=== PATIENT | male | born 1950 | race Caucasian/White ===

== ENCOUNTER 2016-07-20 17:39 | Emergency (ER) | payer OTHER ==
--- NOTE | 2016-07-20 20:06 | ED CLINICAL REPORT ---
Clinical Report - Physicians/Mid Levels [facility] [address] [place] [address] 07/20/2016 17:39 Patient: SIM GUTHRIE Time Seen: 18:00. Arrived- By private vehicle. Historian- patient. HISTORY OF PRESENT ILLNESS Chief Complaint: UPPER EXTREMITY PAIN and SWELLING. This started about 4 days ago and is still present. It was gradual in onset and has been constant. Severity is described as being .it has become recently worse. The quality is noted to be aching and "pain". Symptoms located in the area of the left elbow, left forearm, left wrist and left hand. The patient has had redness and swelling. Patient denies an injury. REVIEW OF SYSTEMS No chills, fever, sweats, calf pain or chest pain. No cough, difficulty breathing, pedal edema, palpitations or abdominal pain. No constipation, diarrhea, nausea or vomiting. He has had urgency, frequency and moderate pain during urination (he says that he gets frequent recurrent urinary tract infections.). It has been similar to previous symptoms. All systems otherwise negative, except as recorded above. PAST HISTORY PCP - LADY SUGGS Problems: Hyperlipidemia. Back Pain. Cardiomyopathy. Hypertension. Pedal Edema. Immunizations. Neuropathy. Atrial Fibrillation. Diabetes Mellitus. Additional Surgeries: Appendectomy. Medications: Zyrtec 10mg, daily. Gabapentin Oral 300 mg, 3x a day. OxyCODONE HCl Oral 5 mg, as needed. Torsemide Oral, daily. Vitamin D Oral. Atenolol Oral 25 mg, daily. MetFORMIN HCl Oral 500 mg, daily. Potassium Chloride Oral 20 meq, daily. Spironolactone Oral 50 mg, 2x a day. Allergies: Unknown. SOCIAL HISTORY Former smoker, end date 2006. History of occasional drug use: marijuana. No alcohol use. FAMILY HISTORY No significant family medical history. ADDITIONAL NOTES The nursing notes have been reviewed. PHYSICAL EXAM Vital Signs: 07/20/2016 17:46 BP: 123/82. HR: 78. RR: 16. O2 saturation: 95%. Temp: 99.2 F. Pain level now: 4/10. Have been reviewed. Appearance: Alert. Eyes: Pupils equal, round and reactive to light. ENT: Pharynx normal. Neck: Normal inspection. Neck supple. CVS: Normal heart rate and rhythm. Heart sounds normal. Respiratory: No respiratory distress. Breath sounds normal. Abdomen: Soft and nontender. No organomegaly. Severely obese. Back: Normal inspection. Skin: Skin warm and dry. Extremities: Swelling, warmth, tenderness and erythema present in the left hand, left wrist, left forearm and left elbow. No fluctuance. Left elbow. (moderately swollen olecranon bursa). LABS, X-RAYS, AND EKG Lt Elbow X-ray: (IMPRESSION: 1. Moderate sized joint effusion. 2. Soft tissue thickening in the olecranon bursa region suggestive of a bursitis. 3. No soft tissue gas, foreign body, or evidence of osteomyelitis. 4. Findings of probable remote, healed common extensor tendon injury and possibly partial tendon tear laterally). The X-rays were interpreted contemporaneously by me and discussed with the radiologist. Lt Wrist X-ray: (IMPRESSION: 1. Intact left wrist. 2. No evidence of soft tissue gas. 3. Extensive calcific arteriosclerosis). The X-rays were interpreted contemporaneously by me and discussed with the radiologist. Laboratory Tests: UA-Culture if indicated: (REFUGIO: 07/20/2016 19:50) ( MsgRcvd 07/20/2016 20:07) Final results Test Result Flag Units (Reference) URINE COLOR YELLOW URINE APPEARANCE CLOUDY URINE GLUCOSE NEGATIVE (NEGATIVE) URINE BILIRUBIN NEGATIVE (NEGATIVE) URINE KETONE NEGATIVE (NEGATIVE) URINE SPECIFIC GRAVITY 1.010 (1.010-1.030) URINE PH 6.0 (5.0-8.0) URINE PROTEIN 1+ (NEGATIVE) URINE UROBILINOGEN 4.0 EU/dL (0.2-1.0) The urobilinogen reagent area may react with interferingsubstances known to react with Graham's reagent such asp-aminosalicylic acid and sulfonamides. Atypical colorreactions may be obtained in the presence of highconcentrations of p-aminobenzoic acid. The absence ofurobilinogen cannot be determined with this test. URINE NITRITE POSITIVE (NEGATIVE) URINE BLOOD 1+ (NEGATIVE) URINE LEUK ESTERASE POSITIVE (NEGATIVE) URINE RBC 1-3 rbc/hpf (0-1) URINE WBC >100 wbc/hpf (0-1) URINE EPITHELIAL CELLS 1-3 EPI/hpf (0-5) URINE BACTERIA FEW (1+) (NONE SEEN) URINE COMMENT CULTURE INDICATED 0-1 TRANSITIONAL EPITHELIAL CELLSURINE CULTURES ARE SET-UP BASED ON THE FOLLOWING CRITERIA:POSITIVE NITRITEPOSITIVE LEUKOCYTE ESTERASEGREATER THAN 10 WHITE BLOOD CELLSMODERATE (2+) OR GREATER BACTERIA CBC w Diff: (REFUGIO: 07/20/2016 18:30) ( [facility] 18:44) Final results Test Result Flag Units (Reference) WHITE BLOOD COUNT 10.8 K/uL (4.5-11.5) RED BLOOD COUNT 4.71 M/uL (4.50-5.90) HEMOGLOBIN 14.8 gm/dL (13.5-17.5) HEMATOCRIT 43.7 % (41.0-53.0) MEAN CELL VOLUME 93 fL (80-100) MEAN CORPUSCULAR HGB 32 pg (26-34) MEAN CORPUSCULAR HGB CONC 34 g/dL (31-37) RED CELL DISTRIBUTION WIDTH 16.3 H % (11.6-14.8) PLATELET COUNT 113 L K/uL (150-400) NEUTROPHIL % 80.9 H % (50-75) LYMPH % 9.4 L % (25-40) MONO % 8.3 % (3-14) EOSINOPHIL % 0.9 % (0-4) BASOPHIL % 0.5 % (0-2) PT with INR: (REFUGIO: 07/20/2016 18:30) ( [facility] 07/20/2016 18:53) Final results Test Result Flag Units (Reference) INR 1.1 (0.8-1.2) Low Intensity Therapy: INR 1.5-2.0 PT range 18.5-23.1Mod.Intensity Therapy: INR 2.0-3.0 PT range 23.1-31.5High Intensity Therapy: INR 2.5-3.5 PT range 27.4-35.5High Intensity Therapy 2: INR 3.0-4.0 PT range 31.5-39.3 APTT 38 H SECONDS (24-34) D-DIMER QUANTITATIVE 0.38 ug/mLFEU (0.27-0.52) The primary value of this quantitative assay relates toits negative predictive value (i.e. exclusion) of pulmonaryembolism/deep vein thrombosis/DIC.Elevated levels of d-dimer may also occur with:, age, cancer, inflammation, liver disease,post-op, infection, hematoma, coronary disease, peripheralarteriopathy, bleeding disorders and thrombolytic treatment.Results should be correlated with other clinical andradiological data.Testing Methodology: Latex Immunoassay Lactate, Serum: (REFUGIO: 07/20/2016 18:50) ( [facility] 07/20/2016 19:19) Final results Test Result Flag Units (Reference) LACTIC ACID 0.6 mmol/L (0.4-2.0) CMP: (REFUGIO: 07/20/2016 18:30) ( [facility]) Final results Test Result Flag Units (Reference) GLUCOSE 133 H mg/dL (70-110) BUN 68 H mg/dL (7-18) CREATININE 1.7 H mg/dL (0.6-1.3) Estimated GFR 42.94 mL/min Estimated GFR- 52.04 mL/min Note: Persistent reduction over 3 months in eGFR<60 mL/min/1.73 m2 defines CKD. Patients with eGFR values>=60 mL/min/1.73 m2 may also have CKD if evidence ofpersistent proteinuria. Additional information may be foundat [email or web address].org. SODIUM 136 mmol/L (136-145) POTASSIUM 4.6 mmol/L (3.5-5.1) CHLORIDE 98 mmol/L (98-107) CARBON DIOXIDE 26 mmol/L (21-32) CALCIUM 9.0 mg/dL (8.5-10.1) TOTAL PROTEIN 8.1 g/dL (6.4-8.2) ALBUMIN 3.9 g/dL (3.3-5.0) BILIRUBIN, TOTAL 0.9 mg/dL (0.0-1.0) ALKALINE PHOSPHATASE 74 U/L (46-116) AST (SGOT) 13 L U/L (15-37) ALT (SGPT) 20 U/L (12-78) . PROGRESS AND PROCEDURES Course of Care: Orthopedic services are not available at [facility] this evening. Discussed case with hospitalist, (Kenyatta at [facility]). Reviewed test results and need for additional work-up. Agreed upon treatment plan and decision to admit. Health care provider will see patient in hospital. Consult obtained from orthopedics. Dr. Schaeffer at [facility]. Case discussed. Phone consult only. Will see patient in the hospital. Patient/family counseled. Old medical records reviewed. Disposition: Transferred. CLINICAL IMPRESSION Septic joint- left elbow. Cellulitis of the left elbow, left forearm, left wrist and left hand. (Electronically signed by Andrew Oropeza MD 07/21/2016 22:13)
--- NOTE | 2016-07-20 20:06 | ED NURSING NOTES ---
Clinical Report - Nurses [facility] [place] [address] 07/20/2016 17:39 Patient: SIM GUTHRIE TRIAGE Triage time 17:45 Jul 20 2016. Acuity: LEVEL 3. Chief Complaint: LEFT UPPER EXTREMITY PAIN, SWELLING and REDNESS. Alert. JORDAN COMA SCORE: [place] Coma Scale: 15- eyes open spontaneously (4); best verbal response- oriented x 4 (5); best motor response- obeys commands (6). --18:00 Lakhwinder Chairez R.N. 17:46 07/20/16. BP: 123/82. HR: 78. RR: 16. O2 saturation: 95%. Temp: 99.2 F. Pain level now: 4/10. Additional comments: but increases to 10/10 if he tries to move that extrem. --18:00 Lakhwinder Chairez R.N. 17:46. --18:26 Lakhwinder Chairez R.N. Weight: 145.1 kg stated. Height/Length: 73 inches Per Patient. BMI: 42.2. --17:53 Lakhwinder Chairez R.N. Medications Atenolol Oral 25 mg, daily. MetFORMIN HCl Oral 500 mg, daily. Potassium Chloride Oral 20 meq, daily. Spironolactone Oral 50 mg, 2x a day. --17:55 Lakhwinder Chairez R.N. Torsemide Oral, daily. Vitamin D Oral. --17:56 Lakhwinder Chairez R.N. OxyCODONE HCl Oral 5 mg, as needed. --17:57 Lakhwinder Chairez R.N. Gabapentin Oral 300 mg, 3x a day. --18:15 Lakhwinder Chairez R.N. Zyrtec 10mg, daily. --18:16 Lakhwinder Chairez R.N. The following entry was struck and corrected by Lakhwinder Chairez R.N., 17:58 (07/20/16) Reason for correction - other(correction). <<STRICKEN ENTRY-- MetFORMIN HCl Oral 500 mg, 2x a day. --17:55 Lakhwinder Chairez R.N. --END STRIKE>>. Allergies Unknown. --17:55 Lakhwinder Chairez R.N. Medication/allergy information source: the patient. --18:00 Lakhwinder Chairez R.N. History Arrived by private vehicle. Historian: patient. Accompanied by spouse. Primary physician (David). ( (L) Forearm/Elbow pain and swelling. Pt states that he might have injured that arm 7 months ago when he was pulling a gas motor starter cord.). An injury may have occurred. This occurred (maybe 7 moths ago). Occurred at home. It is described as radiating to the left upper extremity and elbow. He has had redness on left forearm. 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 PAST MEDICAL HX: Type II diabetes mellitus treated with oral medication. Hypertension. Tetanus status: unknown. Immunizations: status is unknown. SOCIAL HX: Former smoker, end date 2006. History of occasional drug use: marijuana. No alcohol use. No infectious disease exposure. ABUSE ASSESSMENT: No report of abuse. FALL RISK ASSESSMENT: Fall risk assessment completed. No fall risk identified. NUTRITIONAL RISK ASSESSMENT: The nutritional risk assessment revealed no deficiencies. FUNCTIONAL ASSESSMENT: Functional assessment: no impairments noted. LEARNING NEEDS ASSESSMENT: The learning needs assessment revealed no barriers. SKIN INTEGRITY ASSESSMENT: Skin integrity risk assessment completed. No skin integrity risk identified. --18:00 Lakhwinder Chairez R.N. ( Pt states that before he injured his LFA pulling the motor cord, he had fallen and injured both knees and the (R) knee needed drainage after it swelled, "the size of a football."). --18:04 Lakhwinder Chairez R.N. This occurred (LFA pain started 4 days ago.). --18:26 Lakhwinder Chairez R.N. PROBLEMS: Pedal Edema. Immunizations. Neuropathy. Atrial Fibrillation. --17:59 Lakhwinder Chairez R.N. Hyperlipidemia. Cardiomyopathy. Back Pain. --18:12 Lakhwinder Chairez R.N. ADDITIONAL SURGERIES: Appendectomy. --17:59 Lakhwinder Chairez R.N. Interventions ID band on patient. To treatment room. --18:00 Lakhwinder Chairez R.N. PHYSICAL ASSESSMENT Ambulatory to room. GENERAL / NEURO / PSYCH: Appears in pain. EXTREMITIES: Extremities exhibit normal ROM. No upper extremity edema. Skin is non-tender on the extremities. Left forearm: tenderness, swelling and erythema. SKIN: Skin intact. Skin is warm and dry. --18:01 Lakhwinder Chairez R.N. NURSING PROGRESS NOTES Patient gowned. Reassurance given. Patient identifiers checked. Call light placed in reach. Side rails up. Patient ready for evaluation- chart flagged and ED physician notified. --18:01 Lakhwinder Chairez R.N. 18:35 07/20/2016 Site #1 started via IV in the right antecubital space with an 20g angiocath, with aseptic technique and good blood return; one attempt. Blood drawn: rainbow set. Labeled in the presence of the patient and sent to the lab. Saline lock flushed with 10 mL saline. --18:36 Amita Antonio 18:50. Patient ID band checked for patient name, birthdate and medical record number: patient confirmed. Instructions provided to collect clean catch urine and patient verbalized understanding. Clean catch urine collected with return of yellow-colored clear urine; odor is normal; sample sent to lab for urinalysis and culture. Specimen labeled in the presence of the patient. --19:51 Lakhwinder Chairez R.N. 20:01 07/20/2016 Started 2 gm of Vancomycin IVPB in bag #1 520 mL; at 260 mL/hr over 2 hour(s) via site #1 via IV pump. Allergies verified and confirmed 5 rights. IV patency established. IV site checked: no pain, redness, or swelling. IV flushed thoroughly pre- and post-medication administration. --20:01 Lakhwinder Gardiner R.N. 20:09 07/20/2016 Dilaudid (HYDROmorphone HCl PF) IVP 0.5 mg given over 2 minute(s) via site #1. Allergies verified, confirmed 5 rights and sedative warning given to the patient and patient's family. IV patency established. IV site checked: no pain, redness, or swelling. IV flushed thoroughly pre- and post-medication administration. --20:12 Lakhwinder Gardiner R.N. ( pt ambulated to restroom.). --21:29 Eli Zurita R.N. 21:42 07/20/2016 Dilaudid (HYDROmorphone HCl PF) IVP 0.5 mg given over 2 minute(s) via site #1. Allergies verified, confirmed 5 rights and sedative warning given to the patient. IV patency established. IV site checked: no pain, redness, or swelling. IV flushed thoroughly pre- and post-medication administration. IVP given by RN. --22:07 Lakhwinder Chairez R.N. 22:03 07/20/2016 Site #[address] upon discharge; patent, no pain and no signs of infection or infiltration (Vancomycin I(VPB infusing on discharge.). --22:11 Lakhwinder Chairez R.N. 22:03 07/20/2016 Vancomycin IVPB Continued: upon discharge at the rate of 250 mL/hr. 70 mL remaining bag #1. IV patency established. IV site checked: no pain, redness, or swelling. IV flushed thoroughly. (Vancomycin). --22:10 Lakhwinder Chairez R.N. DISPOSITION / DISCHARGE 21:18 07/20/16. BP: 97/70. HR: 84 (irregular). RR: 16. O2 saturation: 97% on room air. Pain level now: 2/10. Additional comments: LFA. --21:19 Lakhwinder Chairez R.N. 22:03 07/20/16. Temp: 99.2 F (oral). --22:03 Lakhwinder Chairez R.N. Departure time: 2203. --22:04 Lakhwinder Chairez R.N. 22:00. Transferred to [facility]. Summary of care provided to transfer facility. Transported via ambulance by transport team with IV. Report was given to a nurse via a phone call. Report included patient's care, treatment, medications, reviewed medication reconcilliation, and condition (including any recent changes or anticipated changes). All questions were answered. Report was acknowledged and care was transferred. (Tika Johnson RN). Patient's personal items; items were placed in belongings bag and transported with the patient. --22:05 Lakhwinder Chairez R.N. Locked/Released at 07/20/2016 22:13 by Lakhwinder Chairez R.N.
--- NOTE | 2016-07-20 20:06 | ED ORDER SUMMARY ---
..... Patient: SIM GUTHRIE OrderSheet [facility] VisitID: [id number] [place] [address] 65y, M Registration Date/Time: 07/20/2016 ORDER SHEET Weight: 145.1 kg (stated) Allergies: Unknown GENERAL ORDERS: Blood Culture (No) (N/A) Urgent (18:21 07/20/2016 Annemarie FREDERICK) (Ack 18:24 Ned PACE Tech1) (19:05 Ned PACE Tech1) (19:06 JRomanelli R.N.) CBC w Diff Urgent (18:22 07/20/2016 Annemarie FREDERICK) (Ack 18:24 Ned Camilo) (18:43 TBowen R.N.) CMP Urgent (18:22 07/20/2016 Annemarie FREDERICK) (Ack 18:24 Ned Camilo) (18:43 TBowen R.N.) PT with INR Urgent (18:22 07/20/2016 Annemarie FREDERICK) (Ack 18:24 Ned Camilo) (18:43 TBowen R.N.) PTT Urgent (18:22 07/20/2016 Annemarie FREDERICK) (Ack 18:24 Ned Camilo) (18:43 TBowen R.N.) D-Dimer Urgent (18:22 07/20/2016 Annemarie FREDERICK) (Ack 18:24 Ned Camilo) (18:43 TBowen R.N.) Elbow 3 or 4V Left Urgent (19:07/20/2016 Annemarie FREDERICK) (Ack 19:05 Ned Camilo) (19:42 MCampbell) Wrist 3 or 4V Left Urgent (19:07/20/2016 Annemarie FREDERICK) (Ack 19:05 Ned Camilo) (19:42 MCampbell) Lactate, Serum Urgent (19:07/20/2016 Annemarie FREDERICK) (Ack 19:05 Ned PACE TechEduard) (19:49 JQuivey R.N.) UA-Culture if indicated Urgent (19:07/20/2016 Annemarie FREDERICK) (Ack 19:05 PWtriny ER Tech1) (19:49 Noah R.N.) MEDICATION ORDERS: IV FLUIDS: IV Saline Lock (18:22 07/20/2016 Annemarie FREDERICK) (18:43 TBowen R.N.) Vancomycin IV 2 gm/500 mL (NOW) (19:47 07/20/2016 Annemarie FREDERICK) (20:01 JQuivey R.N.) Dilaudid IV 0.5 mg (NOW) (20:06 07/20/2016 JQuivechai R.N. verbal order read back to Annemarie FREDERICK) (Ack 20:06 JQuivey R.N.) (20:12 JQuivey R.N.) Dilaudid IV 0.5 mg (NOW) (22:06 07/20/2016 Noah R.N. verbal order read back to Annemarie FREDERICK) (22:07 Noah R.N.) ORDER SHEET NOTES: [Electronically signed by Lakhwinder Chairez R.N. (22:13 07/20/2016)] [Electronically signed by Andrew Oropeza MD (22:13 07/21/2016)] [Electronically locked/signed by Lakhwinder Chairez R.N. (22:13 07/20/2016)]
--- NOTE | 2016-07-20 20:06 | ED CLINICAL REPORT ---
Clinical Report - Physicians/Mid Levels [facility] [address] [place] [address] 07/20/2016 17:39 Patient: SIM GUTHRIE Time Seen: 18:00. Arrived- By private vehicle. Historian- patient. HISTORY OF PRESENT ILLNESS Chief Complaint: UPPER EXTREMITY PAIN and SWELLING. This started about 4 days ago and is still present. It was gradual in onset and has been constant. Severity is described as being .it has become recently worse. The quality is noted to be aching and "pain". Symptoms located in the area of the left elbow, left forearm, left wrist and left hand. The patient has had redness and swelling. Patient denies an injury. REVIEW OF SYSTEMS No chills, fever, sweats, calf pain or chest pain. No cough, difficulty breathing, pedal edema, palpitations or abdominal pain. No constipation, diarrhea, nausea or vomiting. He has had urgency, frequency and moderate pain during urination (he says that he gets frequent recurrent urinary tract infections.). It has been similar to previous symptoms. All systems otherwise negative, except as recorded above. PAST HISTORY PCP - LADY SUGGS Problems: Hyperlipidemia. Back Pain. Cardiomyopathy. Hypertension. Pedal Edema. Immunizations. Neuropathy. Atrial Fibrillation. Diabetes Mellitus. Additional Surgeries: Appendectomy. Medications: Zyrtec 10mg, daily. Gabapentin Oral 300 mg, 3x a day. OxyCODONE HCl Oral 5 mg, as needed. Torsemide Oral, daily. Vitamin D Oral. Atenolol Oral 25 mg, daily. MetFORMIN HCl Oral 500 mg, daily. Potassium Chloride Oral 20 meq, daily. Spironolactone Oral 50 mg, 2x a day. Allergies: Unknown. SOCIAL HISTORY Former smoker, end date 2006. History of occasional drug use: marijuana. No alcohol use. FAMILY HISTORY No significant family medical history. ADDITIONAL NOTES The nursing notes have been reviewed. PHYSICAL EXAM Vital Signs: 07/20/2016 17:46 BP: 123/82. HR: 78. RR: 16. O2 saturation: 95%. Temp: 99.2 F. Pain level now: 4/10. Have been reviewed. Appearance: Alert. Eyes: Pupils equal, round and reactive to light. ENT: Pharynx normal. Neck: Normal inspection. Neck supple. CVS: Normal heart rate and rhythm. Heart sounds normal. Respiratory: No respiratory distress. Breath sounds normal. Abdomen: Soft and nontender. No organomegaly. Severely obese. Back: Normal inspection. Skin: Skin warm and dry. Extremities: Swelling, warmth, tenderness and erythema present in the left hand, left wrist, left forearm and left elbow. No fluctuance. Left elbow. (moderately swollen olecranon bursa). LABS, X-RAYS, AND EKG Lt Elbow X-ray: (IMPRESSION: 1. Moderate sized joint effusion. 2. Soft tissue thickening in the olecranon bursa region suggestive of a bursitis. 3. No soft tissue gas, foreign body, or evidence of osteomyelitis. 4. Findings of probable remote, healed common extensor tendon injury and possibly partial tendon tear laterally). The X-rays were interpreted contemporaneously by me and discussed with the radiologist. Lt Wrist X-ray: (IMPRESSION: 1. Intact left wrist. 2. No evidence of soft tissue gas. 3. Extensive calcific arteriosclerosis). The X-rays were interpreted contemporaneously by me and discussed with the radiologist. Laboratory Tests: UA-Culture if indicated: (REFUGIO: 07/20/2016 19:50) ( MsgRcvd 07/20/2016 20:07) Final results Test Result Flag Units (Reference) URINE COLOR YELLOW URINE APPEARANCE CLOUDY URINE GLUCOSE NEGATIVE (NEGATIVE) URINE BILIRUBIN NEGATIVE (NEGATIVE) URINE KETONE NEGATIVE (NEGATIVE) URINE SPECIFIC GRAVITY 1.010 (1.010-1.030) URINE PH 6.0 (5.0-8.0) URINE PROTEIN 1+ (NEGATIVE) URINE UROBILINOGEN 4.0 EU/dL (0.2-1.0) The urobilinogen reagent area may react with interferingsubstances known to react with Graham's reagent such asp-aminosalicylic acid and sulfonamides. Atypical colorreactions may be obtained in the presence of highconcentrations of p-aminobenzoic acid. The absence ofurobilinogen cannot be determined with this test. URINE NITRITE POSITIVE (NEGATIVE) URINE BLOOD 1+ (NEGATIVE) URINE LEUK ESTERASE POSITIVE (NEGATIVE) URINE RBC 1-3 rbc/hpf (0-1) URINE WBC >100 wbc/hpf (0-1) URINE EPITHELIAL CELLS 1-3 EPI/hpf (0-5) URINE BACTERIA FEW (1+) (NONE SEEN) URINE COMMENT CULTURE INDICATED 0-1 TRANSITIONAL EPITHELIAL CELLSURINE CULTURES ARE SET-UP BASED ON THE FOLLOWING CRITERIA:POSITIVE NITRITEPOSITIVE LEUKOCYTE ESTERASEGREATER THAN 10 WHITE BLOOD CELLSMODERATE (2+) OR GREATER BACTERIA CBC w Diff: (REFUGIO: 07/20/2016 18:30) ( [facility] [place] 07/20/2016 18:44) Final results Test Result Flag Units (Reference) WHITE BLOOD COUNT 10.8 K/uL (4.5-11.5) RED BLOOD COUNT 4.71 M/uL (4.50-5.90) HEMOGLOBIN 14.8 gm/dL (13.5-17.5) HEMATOCRIT 43.7 % (41.0-53.0) MEAN CELL VOLUME 93 fL (80-100) MEAN CORPUSCULAR HGB 32 pg (26-34) MEAN CORPUSCULAR HGB CONC 34 g/dL (31-37) RED CELL DISTRIBUTION WIDTH 16.3 H % (11.6-14.8) PLATELET COUNT 113 L K/uL (150-400) NEUTROPHIL % 80.9 H % (50-75) LYMPH % 9.4 L % (25-40) MONO % 8.3 % (3-14) EOSINOPHIL % 0.9 % (0-4) BASOPHIL % 0.5 % (0-2) PT with INR: (REFUGIO: 07/20/2016 18:30) ( [facility] [place] 07/20/2016 18:53) Final results Test Result Flag Units (Reference) INR 1.1 (0.8-1.2) Low Intensity Therapy: INR 1.5-2.0 PT range 18.5-23.1Mod.Intensity Therapy: INR 2.0-3.0 PT range 23.1-31.5High Intensity Therapy: INR 2.5-3.5 PT range 27.4-35.5High Intensity Therapy 2: INR 3.0-4.0 PT range 31.5-39.3 APTT 38 H SECONDS (24-34) D-DIMER QUANTITATIVE 0.38 ug/mLFEU (0.27-0.52) The primary value of this quantitative assay relates toits negative predictive value (i.e. exclusion) of pulmonaryembolism/deep vein thrombosis/DIC.Elevated levels of d-dimer may also occur with:, age, cancer, inflammation, liver disease,post-op, infection, hematoma, coronary disease, peripheralarteriopathy, bleeding disorders and thrombolytic treatment.Results should be correlated with other clinical andradiological data.Testing Methodology: Latex Immunoassay Lactate, Serum: (REFUGIO: 07/20/2016 18:50) ( [facility] [place] 07/20/2016 19:19) Final results Test Result Flag Units (Reference) LACTIC ACID 0.6 mmol/L (0.4-2.0) CMP: (REFUGIO: 07/20/2016 18:30) ( [facility] [place] 07/20/2016 19:00) Final results Test Result Flag Units (Reference) GLUCOSE 133 H mg/dL (70-110) BUN 68 H mg/dL (7-18) CREATININE 1.7 H mg/dL (0.6-1.3) Estimated GFR 42.94 mL/min Estimated GFR- 52.04 mL/min Note: Persistent reduction over 3 months in eGFR<60 mL/min/1.73 m2 defines CKD. Patients with eGFR values>=60 mL/min/1.73 m2 may also have CKD if evidence ofpersistent proteinuria. Additional information may be foundat www.kidney.org. SODIUM 136 mmol/L (136-145) POTASSIUM 4.6 mmol/L (3.5-5.1) CHLORIDE 98 mmol/L (98-107) CARBON DIOXIDE 26 mmol/L (21-32) CALCIUM 9.0 mg/dL (8.5-10.1) TOTAL PROTEIN 8.1 g/dL (6.4-8.2) ALBUMIN 3.9 g/dL (3.3-5.0) BILIRUBIN, TOTAL 0.9 mg/dL (0.0-1.0) ALKALINE PHOSPHATASE 74 U/L (46-116) AST (SGOT) 13 L U/L (15-37) ALT (SGPT) 20 U/L (12-78) . PROGRESS AND PROCEDURES Course of Care: Orthopedic services are not available at [facility] this evening. Discussed case with hospitalist, (Kenyatta at [facility]). Reviewed test results and need for additional work-up. Agreed upon treatment plan and decision to admit. Health care provider will see patient in hospital. Consult obtained from orthopedics. Dr. Schaeffer at [facility]. Case discussed. Phone consult only. Will see patient in the hospital. Patient/family counseled. Old medical records reviewed. Disposition: Transferred. CLINICAL IMPRESSION Septic joint- left elbow. Cellulitis of the left elbow, left forearm, left wrist and left hand. (Electronically signed by Andrew Oropeza MD 07/21/2016 22:13)
--- NOTE | 2016-07-20 20:06 | ED ORDER SUMMARY ---
..... Patient: SIM GUTHRIE OrderSheet [facility] VisitID: [id number] [place] [address] 65y, M Registration Date/Time: 07/20/2016 ORDER SHEET Weight: 145.1 kg (stated) Allergies: Unknown GENERAL ORDERS: Blood Culture (No) (N/A) Urgent (18:21 07/20/2016 Annemarie FREDERICK) (Ack 18:24 Ned PACE Tech1) (19:05 Ned PACE Tech1) (19:06 JRomanelli R.N.) CBC w Diff Urgent (18:22 07/20/2016 Annemarie FREDERICK) (Ack 18:24 Ned Camilo) (18:43 TBowen R.N.) CMP Urgent (18:22 07/20/2016 Annemarie FREDERICK) (Ack 18:24 Ned Camilo) (18:43 TBowen R.N.) PT with INR Urgent (18:22 07/20/2016 Annemarie FREDERICK) (Ack 18:24 Ned Camilo) (18:43 TBowen R.N.) PTT Urgent (18:22 07/20/2016 Annemarie FREDERICK) (Ack 18:24 Ned Camilo) (18:43 TBowen R.N.) D-Dimer Urgent (18:22 07/20/2016 Annemarie FREDERICK) (Ack 18:24 Ned Camilo) (18:43 TBowen R.N.) Elbow 3 or 4V Left Urgent (19:07/20/2016 Annemarie FREDERICK) (Ack 19:05 Ned Camilo) (19:42 MCampbell) Wrist 3 or 4V Left Urgent (19:07/20/2016 Annemarie FREDERICK) (Ack 19:05 Ned Camilo) (19:42 MCampbell) Lactate, Serum Urgent (19:07/20/2016 Annemarie FREDERICK) (Ack 19:05 Ned PACE TechEduard) (19:49 JQuivey R.N.) UA-Culture if indicated Urgent (19:07/20/2016 Annemarie FREDERICK) (Ack 19:05 PWtriny ER Tech1) (19:49 Noah R.N.) MEDICATION ORDERS: IV FLUIDS: IV Saline Lock (18:22 07/20/2016 Annemarie FREDERICK) (18:43 TBowen R.N.) Vancomycin IV 2 gm/500 mL (NOW) (19:47 07/20/2016 Annemarie FREDERICK) (20:01 JQuivey R.N.) Dilaudid IV 0.5 mg (NOW) (20:06 07/20/2016 JQuivechai R.N. verbal order read back to Annemarie FREDERICK) (Ack 20:06 JQuivey R.N.) (20:12 JQuivey R.N.) Dilaudid IV 0.5 mg (NOW) (22:06 07/20/2016 Noah R.N. verbal order read back to Annemarie FREDERICK) (22:07 Noah R.N.) ORDER SHEET NOTES: [Electronically signed by Lakhwinder Chairez R.N. (22:13 07/20/2016)] [Electronically signed by Andrew Oropeza MD (22:13 07/21/2016)] [Electronically locked/signed by Lakhwinder Chairez R.N. (22:13 07/20/2016)]
--- NOTE | 2016-07-20 22:16 | DIAGNOSTIC IMAGING REPORT ---
PROCEDURE: XR ELBOW 3 OR 4 VIEWS - LEFT INDICATION: PAIN TECHNIQUE: Four views of the left elbow. COMPARISON: None. FINDINGS: Normal mineralization. No acute fractures. Enthesopathic along the lateral distal humerus at the expected origin of the common extensor tendon. Mild nondisplaced cortical irregularity along the lateral aspect of the coronoid process. No definite cortical erosions or periostitis. There is a moderate sized joint effusion. No radiodense foreign body or soft tissue gas. There is thickening in the expected location of the olecranon bursa. IMPRESSION: 1. Moderate sized joint effusion. 2. Soft tissue thickening in the olecranon bursa region suggestive of a bursitis. 3. No soft tissue gas, foreign body, or evidence of osteomyelitis. 4. Findings of probable remote, healed common extensor tendon injury and possibly partial tendon tear laterally.
--- NOTE | 2016-07-20 22:18 | DIAGNOSTIC IMAGING REPORT ---
PROCEDURE: XR WRIST MIN 3 VIEWS - LEFT INDICATION: PAIN TECHNIQUE: Four views of the left wrist. COMPARISON: None. FINDINGS: Normal mineralization. No fractures. Normal osseous alignment. Fairly extensive small vessel calcification consistent with history of diabetes. No suspicious soft-tissue calcification or radiodense foreign bodies. No soft tissue gas. IMPRESSION: 1. Intact left wrist. 2. No evidence of soft tissue gas. 3. Extensive calcific arteriosclerosis
--- NOTE | 2016-07-21 22:13 | ED MED RECONCILIATION SUMMARY ---
Patient: SIM GUTHRIE Medication Reconciliation Report [facility] VisitID: [id number] [address] [place] [address] 65y, M Registration Date/Time: 07/20/2016 Weight: 145.1 kg Height/Length: 73 in. BMI: 42.2 ALLERGIES: Unknown The patient's Home Medications are listed below: THE FOLLOWING MEDICATIONS NEED TO BE RECONCILED: Atenolol Oral 25 mg, daily Gabapentin Oral 300 mg, 3x a day MetFORMIN HCl Oral 500 mg, daily OxyCODONE HCl Oral 5 mg Potassium Chloride Oral 20 meq, daily Spironolactone Oral 50 mg, 2x a day Torsemide Oral, daily Vitamin D Oral Zyrtec 10mg, daily The source(s) of the original Home Medication information: patient The following Medications were given to the patient in the Emergency Department: Vancomycin [IVPB] IVPB bolus 0, then 2 gm 260 mL/hr, administered: 07/20/2016 8:01:00 PM Dilaudid [IVP] IVP 0.5 mg, administered: 07/20/2016 8:09:00 PM Dilaudid [IVP] IVP 0.5 mg, administered: 07/20/2016 9:42:00 PM The following Medications were prescribed to the patient: None.
--- NOTE | 2016-07-21 22:13 | ED DISCHARGE INSTRUCTIONS ---
Patient: SIM GUTHRIE General Instructions [facility] VisitID: [id number] [address] [place] [address] 65y, M Registration Date/Time: 07/20/2016 Septic joint- left elbow. Cellulitis of the left elbow, left forearm, left wrist and left hand. (Electronically signed by Andrew Oropeza MD 07/21/2016 22:13)
--- NOTE | 2016-07-21 22:13 | ED DISCHARGE INSTRUCTIONS ---
Patient: SIM GUTHRIE General Instructions [facility] VisitID: [id number] [address] [place] [address] 65y, M Registration Date/Time: 07/20/2016 Septic joint- left elbow. Cellulitis of the left elbow, left forearm, left wrist and left hand. (Electronically signed by Andrew Oropeza MD 07/21/2016 22:13)
--- NOTE | 2016-07-21 22:13 | ED MED RECONCILIATION SUMMARY ---
Patient: SIM GUTHRIE Medication Reconciliation Report [facility] VisitID: [id number] [address] [place] [address] 65y, M Registration Date/Time: 07/20/2016 Weight: 145.1 kg Height/Length: 73 in. BMI: 42.2 ALLERGIES: Unknown The patient's Home Medications are listed below: THE FOLLOWING MEDICATIONS NEED TO BE RECONCILED: Atenolol Oral 25 mg, daily Gabapentin Oral 300 mg, 3x a day MetFORMIN HCl Oral 500 mg, daily OxyCODONE HCl Oral 5 mg Potassium Chloride Oral 20 meq, daily Spironolactone Oral 50 mg, 2x a day Torsemide Oral, daily Vitamin D Oral Zyrtec 10mg, daily The source(s) of the original Home Medication information: patient The following Medications were given to the patient in the Emergency Department: Vancomycin [IVPB] IVPB bolus 0, then 2 gm 260 mL/hr, administered: 07/20/2016 8:01:00 PM Dilaudid [IVP] IVP 0.5 mg, administered: 07/20/2016 8:09:00 PM Dilaudid [IVP] IVP 0.5 mg, administered: 07/20/2016 9:42:00 PM The following Medications were prescribed to the patient: None.
--- NOTE | 2016-07-21 22:13 | ED MAR SUMMARY ---
..... Medication Administration Record [facility] [address] [place] [address] Patient: SIM GUTHRIE Visit ID: [id number] 65y, M Weight: 145.1 kg Height/Length: 73 in BMI: 42.2 ALLERGIES: Unknown Start 20:01 07/20/2016 Lakhwinder Gardiner R.N., Continued Upon Discharge 22:03 07/20/2016 Lakhwinder Chairez R.N. Medication Administered: VANCOMYCIN [IVPB], Dose: 2 gm IVPB over 2 hour(s), Rate: 260 mL/hr, Dispensed: 520 mL bag, Site: #1 right AC. Medication Ordered: Vancomycin IV 2 gm/500 mL (NOW). Given 20:09 07/20/2016 Lakhwinder Gardiner R.N. Medication Administered: DILAUDID [IVP] (HYDROMORPHONE HCL PF), Dose: 0.5 mg IVP over 2 minute(s), Site: #1 right AC. Medication Ordered: Dilaudid IV 0.5 mg (NOW). Given 21:42 07/20/2016 Lakhwinder Chairez RHarveyN. Medication Administered: DILAUDID [IVP] (HYDROMORPHONE HCL PF), Dose: 0.5 mg IVP over 2 minute(s), Site: #1 right AC. Medication Ordered: Dilaudid IV 0.5 mg (NOW).
--- NOTE | 2016-07-21 22:13 | ED MAR SUMMARY ---
..... Medication Administration Record [facility] [address] [place] [address] Patient: SIM GUTHRIE Visit ID: [id number] 65y, M Weight: 145.1 kg Height/Length: 73 in BMI: 42.2 ALLERGIES: Unknown Start 20:01 07/20/2016 Lakhwinder Gardiner R.N., Continued Upon Discharge 22:03 07/20/2016 Lakhwinder Chairez R.N. Medication Administered: VANCOMYCIN [IVPB], Dose: 2 gm IVPB over 2 hour(s), Rate: 260 mL/hr, Dispensed: 520 mL bag, Site: #1 right AC. Medication Ordered: Vancomycin IV 2 gm/500 mL (NOW). Given 20:09 07/20/2016 Lakhwinder Gardiner R.N. Medication Administered: DILAUDID [IVP] (HYDROMORPHONE HCL PF), Dose: 0.5 mg IVP over 2 minute(s), Site: #1 right AC. Medication Ordered: Dilaudid IV 0.5 mg (NOW). Given 21:42 07/20/2016 Lakhwinder Chairez RHarveyN. Medication Administered: DILAUDID [IVP] (HYDROMORPHONE HCL PF), Dose: 0.5 mg IVP over 2 minute(s), Site: #1 right AC. Medication Ordered: Dilaudid IV 0.5 mg (NOW).
== END 2016-07-20 22:03 | disposition short-term general hospital (02) ==
LOC: ED SRH 17:39
DX: L03.114 Cellulitis of left upper limb (principal); M00.022 Staphylococcal arthritis, left elbow; E11.9 Type 2 diabetes mellitus without complications; I10 Essential (primary) hypertension; Z79.899 Other long term (current) drug therapy; Z79.84 Long term (current) use of oral hypoglycemic drugs